=== PATIENT | female | born 1995 | race Caucasian/White ===

== ENCOUNTER 2025-01-27 12:14 | Emergency (ER) | payer OTHER, SELFPAY ==
[2025-01-27 12:18] VITALS: BP 131/69; PULSE 104; RESP 20; TEMP 36.8; O2SAT 97; BMI 23.4
--- NOTE | 2025-01-27 12:19 | ED_ITS ---
HPI - General Adult General Chief complaint: Allergic Reaction Stated complaint: Allergic reaction, used epi pen Time Seen by Provider: 01/27/25 12:35 Source: patient Mode of arrival: ambulatory Limitations: no limitations History of Present Illness ED Provider: DR. 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 Patient's symptoms was around 12:00. Related Data Previous Rx's ?Medication ?Instructions ?Recorded epinephrine 0.3 mg/0.3 mL 0.3 mg (0.3 mL) IM Q10M PRN 01/27/25 injection, auto-injector (EpiPen hypersensitivity reac tion #2 ea 2-Lux) Allergies Allergy/AdvReac Type Severity Reaction Status Date / Time dexamethasone Allergy Hives Verified 01/27/25 13:07 environmental allergies Allergy Hives Verified 01/27/25 12:22 famotidine (From Pepcid) Allergy Hives Verified 01/27/25 13:07 seafood Allergy Hives Verified 01/27/25 12:22 Review of Systems Review of Systems: All other systems are reviewed and are negative Constitutional: Reports as per HPI and Reports no additional constitutional complaints Eyes: Reports as per HPI and Reports no additional eye complaints Reports system reviewed and no additional complaints, except as documented Cardiovascular: Reports as per HPI and Reports no additional cardiovascular complaints Respiratory: Reports as per HPI and Reports no additional respiratory complaints Gastrointestinal: Reports as per HPI and Reports no additional gastrointestinal complaints Genitourinary: Reports no additional female genitourinary complaints Musculoskeletal: Reports no additional musculoskeletal complaints Skin/Breast: Reports system reviewed and no additional complaints, except as docu Psychiatric: Reports no additional psychiatric complaints Endocrine: Reports no additional endocrine complaints Hematologic/Lymphatic: Reports no additional hematologic/lymphatic complaints Allergic/Immunologic: Reports no additional allergic/immunologic complaints Reports system reviewed and no additional complaints, except as documented and Reports Abnormal speech present PMFSH Social History Social History Smoked in Last 30 Days: No Use of substances other than those prescribed or required for medical reasons: No Advance Directives: No Advance Directives Information Provided: Yes Physical Exam ED Vital Signs: Vital Signs - 24 hr 01/27/25 12:18 01/27/25 12:48 01/27/25 14:44 Temperature 98.3 F 98.1 F 98.2 F Pulse Rate 104 H 101 H 103 H Respiratory Rate 20 19 18 Blood Pressure 131/69 103/68 101/54 L Pulse Oximetry 97 100 100 Oxygen Delivery Method Room Air Room Air Room Air BMI result Body Mass Index 23.4 Vital signs have been reviewed and appear to be correct. Blood pressure elevated. Heart rate elevated, Respiratory rate normal. Temperature normal. Oxygen saturation normal. Appearance: Anxious, Alert. Oriented X3. No acute distress. Head: Normal external exam. Normocephalic. Atraumatic. No Sue signs noted. No raccoon eyes noted Eyes: PERRLA. EOMI. Conjunctiva and sclera normal. Eyelids normal. ENT: TM's Normal. Pharynx normal. Uvula midline. Moist mucous membranes. No trismus noted. No drooling noted. No muffled voice noted. Neck: Normal inspection. Neck supple. FROM. No adenopathy. Thyroid Normal. No meningeal signs. No neck mass noted. CVS: Normal heart rate and rhythm. Heart sound normal. No murmurs noted. Pulses normal throughout. Respiratory: No respiratory distress. Painless inspiration. Breath sounds normal. No wheezes/rales/rhonchi noted. Chest nontender. No accessory muscle usage noted or decreased air movement noted. Abdomen: Soft and nontender. Bowel sounds normal in all 4 quadrants. No distention noted. No organomegaly noted. No visible injury noted. Back: No CVA tenderness. Full range of motion noted. Skin: Skin warm and dry. Normal skin color. Normal skin turgor. No rashes/lesions/lacerations noted. Extremities: No lower extremity edema. Extremities exhibit normal range of motion. Extremities nontender. Neuro: Oriented X 3. Cranial nerve exam: II-XII are grossly intact No motor deficit. No sensory deficit. Reflexes normal. Course Course Course Narrative: 29yo F history of MCAS, multiple allergies. Eating campos. Feeling of throat closing up. Given Epinephrine prior to arrival. No stridor, Not in respiratory distress Rapid medical screening exam was performed. Patient stable at time of evaluation. Jenny Fermin, DO 01/27/25 1219 Reevaluation(s) Reevaluation #1: 29-year-old female history of mast cell activation had to use an epi pen after developed symptoms of allergic reaction. Patient hemodynamically stable, no sign of allergic reaction, patent airway, no stridor. Time: 15:00 Medications Administered Discontinued Medications Generic Name Dose Route Start Last Admin Trade Name Freq PRN Reason Stop Dose Admin Diphenhydramine HCl 25 mg 01/27/25 12:50 01/27/25 13:08 Diphenhydramine Hcl 50 Mg/Ml Vial IVPUSH 01/27/25 12:51 25 mg ONCE ONE Administration Famotidine 20 mg 01/27/25 12:50 01/27/25 13:07 Famotidine/Pf 20 Mg/2 Ml Vial IVPUSH 01/27/25 12:51 Not Given ONCE ONE Lactated Ringer's 1,000 mls @ 999 mls/hr 01/27/25 13:00 01/27/25 14:19 Lr IV 01/27/25 14:00 Infused .Q1H1M FERNANDO Infusion Prednisone 60 mg 01/27/25 13:12 01/27/25 13:21 Prednisone 20 Mg Tablet PO 01/27/25 13:13 60 mg ONCE ONE Administration Medical Decision Making Differential Diagnosis Differential Diagnoses: The differential diagnosis associated with the presentation includes (Anaphylaxis, allergic reaction.) Admission/Observation Consideration of admission/observation: Escalation of care including admission/observation considered Critical Care Time Critical Care Time Critical Care Time: Yes Total Critical Care Time: 60 Attestation: The patient was critically ill with a high probability of imminent or life- threatening deterioration. I spent greater than 30 minutes of discontinuous time evaluating the patient, delivering critical care at the bedside, discussing evaluating data with consultants. Critical care time does not include time spent performing separately billable procedures or teaching. Time spent performing critical care was 60 minutes. Discharge Plan Discharge Clinical Impression: Allergic reaction Patient Disposition: Home, Self-Care Instructions: General Allergic Reaction (ED) Prescriptions: New epinephrine [EpiPen 2-Lux] 0.3 mg/0.3 mL auto-injector 0.3 mg IM Q10M PRN (Reason: hypersensitivity reaction) Qty: 2 0RF Rx Instructions: for 2 doses Referrals: [facility] [Primary Care Provider, Primary Care] Print Language: Tuvaluan
[2025-01-27 12:48] VITALS: BP 103/68; PULSE 101; RESP 19; TEMP 36.7; O2SAT 100
[2025-01-27] MEDS: Lactated Ringers 1,000 ML 999 ML IV (13:15)
--- NOTE | 2025-01-27 13:35 | PC.NURSE ---
patient a&ox3, vss, iv inserted, pt medicated per order, rr equal/non labored, denies difficulty swallowing, quality assurance monitor final applied- nsr on monitor, call jorge within reach, plan of care ongoing
[2025-01-27 14:44] VITALS: BP 101/54; PULSE 103; RESP 18; TEMP 36.8; O2SAT 100
[2025-01-27 15:25] VITALS: BP 101/54; PULSE 103; RESP 18; TEMP 36.8; O2SAT 100
--- OUTSIDE RECORDS SUMMARY | 2025-01-27 16:37 | XMS_ITS | Encounter Summary ---
Author Organization [facility] Address [address] [place] [address] Care Team Providers Care Blind Aide Name Role Phone Lauryn Muir DO Primary Care Provider Unavail able Encounter Details Date Type Department Care Team (Late st Contact Info) Description 05/25/2024 Scanned Document [address] [place] [phone] Provider, Generic Social History Tobacco Use Types Packs/Day Years Used Date Smoking Tobacco: Never Assessed Comments Unknown Sex and Gender Information Value Date Recorded Sex Assigned at Not on file Legal Sex Female 12:06 PM EST Gender Identity Not on file Sexual Orientation Not on file documented as of this encounter Plan of Treatment Not on file documented as of this encounter Visit Diagnoses Not on filedocumented in this encounter Care Teams Blind Aide Relationship Specialty Start Date End Date Lauryn Muir DO PCP - General Internal Medicine 05/25/24 documented as of this encounter
--- OUTSIDE RECORDS SUMMARY | 2025-01-27 16:37 | XMS_ITS | Encounter Summary ---
Author Organization [facility] Address [address] [place] [address] Care Team Providers Care Crushing Machine Operator Name Role Phone Lauryn Muir DO Primary Care Provider Unavail able Encounter Details Date Type Department Care Team (Late st Contact Info) Description 05/25/2024 Scanned Document [address] [place] [phone] Provider, Generic Social History Tobacco Use [...] on filedocumented in this encounter Care Teams Crushing Machine Operator Relationship Specialty Start Date End Date Lauryn Muir DO PCP - General Internal Medicine 05/25/24 documented as of this encounter
--- OUTSIDE RECORDS SUMMARY | 2025-01-27 16:37 | XMS_ITS | Data Portability ---
Author Organization [facility] Address [address] [address] Assessment Encounter Date Assessment Date Assessment LastModified by Organization Details LastModified Time 06/12/2024 06/12/2024 28 year old female with chronic nasal congestion. No polyps on nasal endoscopy. She did have mucoid secretions on the right. I have recommended a course of Doxycycline. I have also recommended that she use Flonase daily as well as Astelin which I have prescribed today. Allergy testing results are pending. Sleep study has not yet been scheduled. I will see her back in six weeks. If her symptoms persist she may benefit from CT sinus. [email or web address] Not available 06/12/2024 10:22:03 Plan of Treatment Reminders Order Date Submit Date Provider Last Modified By Organization Details Last Modified Time Details Appointments None recorded. Lab None recorded. Referral None recorded. Procedures None recorded. Surgeries None recorded. Imaging None recorded. Medication Orders azelastine 137 mcg (0.1 %) nasal spray 2024 025 [address]IER [id number], [address] [place], [address], 09:53:40 doxycycline hyclate 100 mg tablet 2024 025 [email or web address] [id number], [address] [place], [address], 10:15:10 Patient TargetsNo targets recorded. Patient InstructionsNo instructions recorded. Reason for Referral None Reported. Problems Name Problem SNOMED Code Status Onset Date Resolution Date Notes Provider Name and Address Organization Details Recorded Time Nasal congestion 08761288 Active 025 Bethanie gipson [facility] 5 09:43:46 Snoring 30878584 Active 025 Bethanie gipson [facility] 5 09:44:01 Acute sinusitis 06459659 Active 025 Bethanie gipson [facility] 5 09:51:45 Problem Notes None recorded. Procedures Surgical History Date Name Laterality Status Provider Name and Address Organization Details Recorded Time 06/12/2024 NasalEndos copy_DP completed Bethanie Martinez [facility] 06/12/2024 10:17:55 Imaging Results None recorded. Procedure Notes None recorded. Medical Equipment None Reported. Medications Name Sig Start Date Stop Date Status Note LastModified by Organization Details LastModified Time promethazine -DM 6.25 mg-15 mg/5 mL oral syrup TAKE 5 ML BY MOUTH 4 TIMES A DAY EVERY 6 HOURS NEEDED FOR COUGH active Not Available Not Available No t Available prednisone 10 mg tablet PLEASE SEE ATTACHED FOR DETAILED DIRECTIONS active Not Available Not Available N ot Available albuterol sulfate 2.5 mg/3 mL (0.083 %) solution for nebulization INHALE 3 ML BY NEBULIZATIO N EVERY 6 HOURS IF NEEDED FOR WHEEZING active Not Available Not Available No t Available cetirizine 10 mg tablet TAKE 1 TABLET BY MOUTH DAILY NEEDED FOR ALLERGY SYMPTOMS active Not Available Not Available No t Available albuterol sulfate 1.25 mg/3 mL solution for nebulization TAKE 1 VIAL VIE NEBULIZER EVERY 4 HOURS (SHORTNESS OF BREATH OR WHEEZING) FOR 5 DAYS active Not Available Not Available N ot Available prednisone 20 mg tablet TAKE 3 TABLETS BY MOUTH EVERY DAY FOR 5 DAYS active Not Available Not Available No t Available tramadol 50 mg tablet TAKE 1 TABLET BY MOUTH EVERY 6 HOURS IF NEEDED-MODE RATE PAIN UP TO 5 DAYS. MAX DAILY AMOUNT:200 MG active Not Available Not Available No t Available acetaminophe n 500 mg tablet TAKE 2 TABLETS BY MOUTH EVERY 8 HOURS IF NEEDED FOR MILD PAIN FOR UP TO 10 DAYS. active Not Available Not Available No t Available oseltamivir 75 mg capsule TAKE 1 CAPSULE BY MOUTH TWICE A DAY active Not Available Not Available No t Available buspirone 7.5 mg tablet TAKE 1 TABLET BY MOUTH 2 TIMES A DAY. active Not Available Not Available No t Available azelastine 137 mcg (0.1 %) nasal spray SPRAY 2 SPRAYS BY INTRANASAL ROUTE TWICE A DAY FOR 30 DAYS active Not Available Not Available No t Available epinephrine 0.3 mg/0.3 mL injection, auto-injecto r active Not Available Not Available Not Available ibuprofen 600 mg tablet TAKE 1 TABLET BY MOUTH 3 TIMES A DAY FOR 14 DAYS. active Not Available Not Available No t Available albuterol sulfate HFA 90 mcg/actuatio n aerosol inhaler INHALE 1-2 PUFFS 4 TIMES DAILY (EVERY 6 HOURS) NEEDED FOR WHEEZING. active Not Available Not Available No t Available hydroxyzine HCl 10 mg tablet TAKE 2 TABLETS BY MOUTH 4 TIMES A DAY NEEDED FOR ITCHING active Not Available Not Available Not Available doxycycline hyclate 100 mg tablet TAKE 1 TABLET BY MOUTH TWICE A DAY FOR 20 DAYS active Not Available Not Available No t Available Advair HFA 115 mcg-21 mcg/actuatio n aerosol inhaler PLEASE SEE ATTACHED FOR DETAILED DIRECTIONS active Not Available Not Available N ot Available Vitals Date Recorded Body weight Body mass index (BMI) Body height Provider Name and Address Organization Details Last Updated DateTime 06/12/2024 18271.45 g 20.6 kg/m2 165.1 cm Jasmin Le [place] [facility] 06/12/2024 09:33:10 Social History None recorded. Functional Status None recorded. Mental Status None recorded. Family History Nothing Reported. Medical History No medical history recorded. Gynecological HistoryNo gynecological history recorded. Obstetrics History GPAL:G 0 P 0 0 0 0 Past Encounters Encounter ID Performer Location Encounter Start Date Encounter Closed Date Diagnosis/Indication Diagnosis SNOMED-CT Code Diagnosis ICD10 Code Diagnosis IMO Codes Diagnosis Note [id number] BETHANIE MARTINEZ PA-C [facility] [address] [phone] 06/12/2024 09:26:32 06/12/2024 10:01:51 Nasal congestion 89286185 R09.81 Snoring 31406289 R06.83 Acute sinusitis 43410850 J01.90 Health Concerns Section Related Observation LastModified by Organization Detai isidro LastModified Time None Recorded Concern Status LastModified by Organization Details LastModified Time None Recorded Advance Directives Directive None Recorded Payers Insurance Date Sequence Insurance Name Policy Number Policy Jolly Covered Member ID Jolly Member ID Guarantor Name 07/20/2024 1 MERI [id number] Carole Martino [id number] Carole Martino Notes Date Note Type Note Provider Name and Address Organization Details Recorded Time 06/12/2024 text/html ROS as noted in the HPI 28 year old female presents for evaluation of chronic nasal congestion. She reports she has always been a mouth breather and drooled a lot as a child. She has never been able to fully breathe through her nose. Most days she wakes up completely congested. Throughout the day it improves a bit. She has constant thick postnasal drip and runny nose. 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 She has asthma. Her solid waste facility supervisor recommended two week trial of Flonase and she reports only temporary improvement for a couple of hours with Flonase. She is on Zyrtec. She had allergy testing yesterday through [facility] in [place]. Results are not finalized yet but she was told that she had some food and environmental allergies. She just completed 10-14 days of Prednisone for her asthma and did not notice improvement in her congestion. Her solid waste facility supervisor has also ordered a sleep study which is not yet scheduled as she has been told that she snores and is frequently tired throughout the day. DOMENIC DIETRICH MD [address] [place] [address], [phone], [facility] - [facility] 06/12/2024 16:49:55 OBGyn Episode No OBEpisode recorded.
--- OUTSIDE RECORDS SUMMARY | 2025-01-27 16:37 | XMS_ITS ---
Author Name [facility] Organization Unknown History of Medication Use Medication Directions Dispensed Refills Start Date End Date Stat us albuterol (PROVENTIL HFA; VENTOLIN HFA) 108 (90 Base) MCG/ACT inhaler Inhale 1-2 puffs 4 times daily (every 6 hours) as needed for wheezing. 05/25/2024 active oseltamivir (TAMIFLU) 75 MG capsule Take 1 capsule (75 mg total) by mouth 2 (two) times a day. 05/25/2024 active predniSONE (DELTASONE) 10 MG tablet Take 5 tabs/days1-3, 4 tabs/days4-6, 3tabs/days7-9, 2tab/edmm65-76, and 1 tab/emkk13-75; take with food. 05/25/2024 active proMETHAZINE-dextrome thorphan (proMETHAZINE-DM) 6.25-15 MG/5ML syrup Take 5 mL by mouth 4 times daily (every 6 hours) as needed for cough. 05/25/2024 active Advair HFA 115-21 MCG/ACT inhaler Please see attached for detailed directions 02/19/2024 active Allergies Allergen Reaction Severity Comment Documented Date Source Statu s DEXAMETHASONE HIVES 05/25/2024 [facility] active Problems Problem Status Onset Date Problem Type Date of Resoluti on Source Acute cough active EncounterDiagnosisAct [facility] Exposure to influenza active EncounterDiagnosisAct [facility] Viral bronchitis active EncounterDiagnosisAct [facility] Encounters Encounter Type Encounter Reason Primary Diagnosis Location Date Ambulatory Cough Cough [facility] 05/25/2024 Care Team Organization Name Specialty Phone Email Start Date End Da te [facility] 06/10/2024 07/02/2024 [facility] 05/26/2024 [facility] 05/26/2024 [facility] Nasreen Mck[facility] 02/06/2022 11/18/2023
--- OUTSIDE RECORDS SUMMARY | 2025-01-27 16:37 | XMS_ITS | Clinical Summary ---
Author Organization [address] [facility] Address [address] [place] [address] Phone Care Team Providers Care Relief Master Name Role Phone Lauryn Muir Primary Care Provider [phone] Allergies Active Allergy Reactions Criticality Noted Date Comments Dexamethasone Hives 01/21/2024 Latex Hives,Rash 10/20/2018 Medications albuterol 2.5 mg /3 mL (0.083 %) nebulizer solutionIndicati ons:Mild intermittent asthma without complication Take 3 mL (2.5 mg total) by nebulization every 6 (six) hours if needed for wheezing. 300 mL 1 4 Active predniSONE (DELTASONE) 10 mg tablet Take 2 tablets (20 mg total) by mouth 2 (two) times a day. Take 5 tabs 5 Active fluticasone propionate (FLONASE) 50 mcg/actuation nasal sprayIndications :Nasal congestion Administer 2 sprays into each nostril 1 (one) time each day for 14 days. Shake gently. Before first use, prime pump. After use, clean tip and replace cap. 48 g 1 5 Active escitalopram (Lexapro) 20 mg tablet Take 1 tablet (20 mg total) by mouth 1 (one) time each day. 90 each 5 Active fluticasone propion-salmeter oL (ADVAIR HFA) 115-21 mcg/actuation inhaler Inhale 2 puffs by mouth 2 (two) times a day. Rinse mouth with water after use to reduce aftertaste and incidence of candidiasis. Do not swallow. Active albuterol HFA (PROAIR HFA ; PROVENTIL HFA ; VENTOLIN HFA) 90 mcg/actuation inhaler Inhale 2 puffs by mouth every 4 (four) hours if needed for wheezing. 6.7 g 5 Active hydrOXYzine HCL (ATARAX) 50 mg tabletIndication s:anxiety Take 1 tablet (50 mg total) by mouth 3 (three) times a day. 180 tablet 1 5 Active busPIRone (BUSPAR) 7.5 mg tabletIndication s:Anxiety TAKE 1 TABLET BY MOUTH 2 TIMES A DAY. 180 tablet 1 5 Active diclofenac (VOLTAREN) 1 % topical gel Apply 4 g topically 4 (four) times a day. DISP: 1 tube with 1 refill 1 each 1 5 Active Active Problems Problem Noted Date Diagnosed Date Anxiety and depression 07/30/2024 Intercostal pain 07/30/2024 Mass of lower inner quadrant of left breast 12/0 05/2023 Mild intermittent asthma without complication Resolved Problems Problem Noted Date Diagnosed Date Resolved Date Rh negative state in antepartum period 01/24/2024 07/30/2024 Positive GBS test 06/15/2021 07/30/2024 Overview (01/24/2024): Pos GBS at [facility] on 05/28/2021 Encounters Date Type Department Care Team Description 01/16/2025 7:30 PM EDT - 01/16/2025 11:35 PM EDT Emergency [facility] Emergency [address] [place] [address] Navin Russell MD Vasovagal syncope (Primary Dx) Discharge Disposition: Home or Self Care 12/22/2024 9:15 AM EDT Office Visit General Surgery - [place] [facility] [address] [place] [address] Dunia Lagos MD Mass overlapping multiple quadrants of left breast (Primary Dx) 12/01/2024 Telephone Pulmonology [address] [place] [address] Apple Khan NP from Last 3 Months Surgical History Surgery Date Site/Laterality Comments OTHER SURGICAL HISTORY Right PROCEDURE: HISTORICAL ARM SURGERY WISDOM TOOTH EXTRACTION INCISION AND DRAINAGE INTRA ORAL ABSCESS 05/02/2023 - 05/30/2023 Medical History Medical History Date Comments Mild intermittent asthma, uncomplicated DX:Mild intermittent asthma, uncomplicated History of transfusion Fractures Anemia Family History Relation Name Status Comments Father Alive Maternal Grandfather Alive Maternal Grandmother Alive Mother Alive Paternal Grandfather Alive Paternal Grandmother Alive Social History Tobacco Use Types Packs/Day Years Used Date Smoking Tobacco: Never Smokeless Tobacco: Never Tobacco Cessation:Counseling Given: Not Answered Alcohol Use Standard Drinks/Week Comments Yes 0 (1 standard drink = 0.6 oz pur e alcohol) OCCASIONAL Interpersonal Safety Answer Date Record ed Physical Abuse Unrecognized value 03/31/2024 Verbal Abuse Unrecognized value 03/31/2024 Comments No Sex and Gender Information Value Date Recorded Sex Assigned at Female 03/18/2024 11:47 AM EST Legal Sex Female 10:45 AM EST Gender Identity Female 03/18/2024 11:47 AM EST Sexual Orientation Straight 03/31/2024 6: 01 AM EST Obstetrics History Last Filed Vital Signs Vital Sign Reading Time Taken Comments Blood Pressure 118/92 01/16/2025 10:42 PM EDT Pulse 81 01/16/2025 10:42 PM EDT Temperature 37.1 C (98.7 F) 01/16/2025 7:58 PM EDT Respiratory Rate 17 01/16/2025 7:58 PM EDT Oxygen Saturation 98% 01/16/2025 7:58 PM EDT Inhaled Oxygen Concentration - - Weight 64.7 kg (142 lb 9.6 oz) 12/22/2024 9:16 A M EDT Height 165.1 cm (5' 5 ) 12/22/2024 9:16 AM EDT Body Mass Index 23.73 12/22/2024 9:16 AM EDT Plan of Treatment Health Maintenance Due Date Last Done Comments Hepatitis A Vaccines (2 of 2 - 2-dose series) 05/04/2012 11/02/2011 Pneumococcal Vaccine: Pediatrics (0 to 5 Years) and At-Risk Patients (6 to 49 Years) (1 of 2 - PCV) 2016 Cervical Cancer Screening: Pap Smear 2018 HIV Screening 03/05/2022 Hepatitis C Screening 03/05/2022 Social Influencers of Health Screening 03/05/2022 Depression Screening 04/01/2024 COVID-19 Vaccine ( - season) 2024 Influenza Vaccine (#1) 2024 DTaP,Tdap,and Td Vaccines (9 - Td or Tdap) 05/27/2029 05/27/2019, 11/13/2010, 11/13/2010, Additional history exists RSV Immunization Adult Patients (1 - 1-dose 75+ series) 2072 Hepatitis B Vaccines Completed 04/14/1998, 1997, 1997 MMR Vaccines Completed 01/23/1999, 10/06/1998 HIB Vaccines Completed 10/31/2001, 05/02, 04/14/1998, Additional history exists IPV Vaccines Completed 10/31/2001, 05/02, 04/14/1998, Additional history exists Meningococcal ACWY Vaccine Aged Out 11/02/2011 N o longer eligible based on patient's age to complete this topic Varicella Vaccines Completed 11/02/2011, 10/06/1998 HPV Vaccines Completed 05/26/2013, 05/2011, 11/13/2010 Meningococcal B Vaccine Aged Out No l onger eligible based on patient's age to complete this topic RSV Immunization Patients Under 20 months Aged Out No longer eligible based on patient's age to complete this topic Medical Devices Implanted Type Area Voltmeter Operator Device Identifier Shelf Expiration Date Model / Serial / Lot Marker 18ga Magseed 7cm - [id number] - [id number] Implanted:Qty: 2 on 03/23/2024 by Stuart Baker MD at [facility] Imaging Implants Left: Breast [employer] [id number] 09/28/2025 [id number] / [id number] Procedures Procedure Name Priority Date/Time Associated Diagnosis Comments CT CERVICAL SPINE WO CONTRAST STAT 01/16/2025 10:[address] HEAD WO CONTRAST STAT 01/16/2025 1 0:10 PM EDT HCG, SERUM, QUALITATIVE STAT Add-on 01/16/2025 8:21 PM EDT CBC WITH AUTO DIFFERENTIAL STAT 01/16/2025 8:21 PM EDT TROPONIN I HIGH SENSITIVITY STAT 01/16/2025 8:21 PM EDT MAGNESIUM STAT 01/16/2025 8:21 PM EDT BASIC METABOLIC PANEL STAT 01/16/2025 8:21 PM EDT CBC AND DIFFERENTIAL STAT 01/16/2025 8:21 PM EDT from Last 3 Months Results * CT Cervical Spine wo Contrast (01/16/2025 10:10 PM EDT) Anatomical Region Laterality Modality Spine, C-spine Computed Tomogra phy 01/16/2025 11:0 5 PM EDT Impressions 01/16/2025 11:05 PM EDT No acute findings. This document has been electronically signed by: Hemanth Allen MD on 01/16/2025 23:05:58 Narrative 01/16/2025 11:05 PM EDT INDICATION: fall CT cervical spine without contrast Comparison: None provided Findings: Disc height loss and anterior osteophyte formation present at C6-7 which results in mild focal lordosis at this level. No canal stenosis or foraminal narrowing at this level. No significant degenerative change of other levels. No acute fractures or dislocations. No acute findings on limited view of the intracranial contents. No cervical fluid collections or masses. Lung apices are clear. Procedure Note Hemanth Allen MD - 01/16/2025 INDICATION: fall CT cervical spine without contrast Comparison: None provided Findings: Disc height loss and anterior osteophyte formation present at C6-7 which results in mild focal lordosis at this level. No canal stenosis or foraminal narrowing at this level. No significant degenerative change of other levels. No acute fractures or dislocations. No acute findings on limited view of the intracranial contents. No cervical fluid collections or masses. Lung apices are clear. IMPRESSION: No acute findings. This document has been electronically signed by: Hemanth Allen MD on 01/16/2025 23:05:58 Navin Russell MD IMG CT PROCEDURES Final R esult * CT Head wo Contrast (01/16/2025 10:10 PM EDT) Anatomical Region Laterality Modality Head and Neck Computed Tomogra phy 01/16/2025 11:0 5 PM EDT Impressions 01/16/2025 11:05 PM EDT 1. No acute intracranial findings. 2. Pansinus disease. Bubbly debris in the right maxillary and right sphenoid sinuses suggest acute sinusitis. This document has been electronically signed by: Hemanth Allen MD on 01/16/2025 23:05:38 Narrative 01/16/2025 11:05 PM EDT INDICATION: fall CT head without contrast Comparison: None provided Findings: No intra-axial mass, midline shift, hydrocephalus, or acute hemorrhage. No significant atrophy-like change or white matter disease. Mucosal thickening of the ethmoid and maxillary sinuses with bubbly debris in the right maxillary and right sphenoid sinuses. Mastoid air cells are clear. The orbits are within normal limits. There is no acute fracture. Procedure Note Hemanth Allen MD - 01/16/2025 INDICATION: fall CT head without contrast Comparison: None provided Findings: No intra-axial mass, midline shift, hydrocephalus, or acute hemorrhage. No significant atrophy-like change or white matter disease. Mucosal thickening of the ethmoid and maxillary sinuses with bubblydebris in the right maxillary and right sphenoid sinuses. Mastoid air cells are clear. The orbits are within normal limits. There is no acute fracture. IMPRESSION: 1. No acute intracranial findings. 2. Pansinus disease. Bubbly debris in the right maxillary and right sphenoid sinuses suggest acute sinusitis. This document has been electronically signed by: Hemanth Allen MD on 01/16/2025 23:05:38 Navin Russell MD IMG CT PROCEDURES Final R esult * Troponin I high sensitivity (01/16/2025 8:21 PM EDT) [facility] High Sensitivity Troponin I 3 <=54 ng/L LAB CHEMISTRY METHOD 01/16/2025 9:35 PM EDT [facility] Blood Venous blood specimen / Unknown Venipuncture / Unknown 01/16/2025 8:21 PM EDT 01/16/2025 8:[address] [facility] - 01/16/2025 9:35 PM EDT High levels of biotin in samples may falsely decrease hsTroponin values. Use caution when interpreting hsTroponin results in patients taking biotin who exhibit renal impairment (eGFR <60) or in patients taking more than 20 mg/day of biotin. Navin Russell MD LAB BLOOD ORDERABLES Suki l Result [facility] [address] [place] [address], [place] [phone] * (ABNORMAL) CBC auto differential (01/16/2025 8:21 PM EDT) [facility] WBC 9.2 4.8 - 10.8 K/mcL LAB HEMETOLOGY METHOD 01/16/2025 9:08 PM EDT [facility] RBC 4.40 3.80 - 4.80 M/mcL LAB HEMETOLOGY METHOD 01/16/2025 9:08 PM EDT [facility] Hemoglobin 12.9 11.5 - 16.0 g/dL LAB HEMETOLOGY METHOD 01/16/2025 9:08 PM EDT [facility] Hematocrit 38.9 35.0 - 47.0 % LAB HEMETOLOGY METHOD 01/16/2025 9:08 PM EDT [facility] MCV 87.6 79.0 - 98.0 FL LAB HEMETOLOGY METHOD 01/16/2025 9:08 PM EDT [facility] MCH 29.1 27.0 - 32.0 pcg LAB HEMETOLOGY METHOD 01/16/2025 9:08 PM [facility] MCHC 33.2 32.0 - 37.0 g/dL LAB HEMETOLOGY METHOD 01/16/2025 9:08 PM [facility] RDW 12.5 11.0 - 15.0 % LAB HEMETOLOGY METHOD 01/16/2025 9:08 PM [facility] Platelets 305 130 - 400 K/mcL LAB HEMETOLOGY METHOD 01/16/2025 9:08 PM [facility] MPV 10.0 7.0 - 11.0 FL LAB HEMETOLOGY METHOD 01/16/2025 9:08 PM [facility] NRBC 0.0 <1.0 % LAB HEMETOLOGY METHOD 01/16/2025 9:08 PM [facility] NRBC Absolute 0.00 <0.10 K/mcL LAB HEMETOLOGY METHOD 01/16/2025 9:08 PM [facility] Neutrophils Relative 65.7 % LAB HEMETOLOGY METHOD 01/16/2025 9:08 PM [facility] Lymphocytes Relative 24.5 % LAB HEMETOLOGY METHOD 01/16/2025 9:08 PM [facility] Monocytes Relative 6.7 % LAB HEMETOLOGY METHOD 01/16/2025 9:08 PM [facility] Eosinophils Relative 2.5 % LAB HEMETOLOGY METHOD 01/16/2025 9:08 PM [facility] Basophils Relative 0.2 % LAB HEMETOLOGY METHOD 01/16/2025 9:08 PM [facility] Immature Granulocytes Relative 0.4 % LAB HEMETOLOGY METHOD 01/16/2025 9:08 PM EDT [facility] Neutrophils Absolute 6.04 1.50 - 7.00 K/mcL LAB HEMETOLOGY METHOD 01/16/2025 9:08 PM EDT [facility] Lymphocytes Absolute 2.25 1.00 - 5.00 K/mcL LAB HEMETOLOGY METHOD 01/16/2025 9:08 PM EDT [facility] Monocytes Absolute 0.62 0.20 - 1.00 K/mcL LAB HEMETOLOGY METHOD 01/16/2025 9:08 PM EDT [facility] Eosinophils Absolute 0.23 0.00 - 0.50 K/mcL LAB HEMETOLOGY METHOD 01/16/2025 9:08 PM EDT [facility] Basophils Absolute 0.02 0.00 - 0.20 K/mcL LAB HEMETOLOGY METHOD 01/16/2025 9:08 PM EDT [facility] Immature Granulocytes Absolute 0.04(H) 0.00 - 0.03 K/mcL LAB HEMETOLOGY METHOD 01/16/2025 9:08 PM EDT [facility] Blood Venous blood specimen / Unknown Venipuncture / Unknown 01/16/2025 8:21 PM EDT 01/16/2025 8:44 PM EDT us Navin Russell MD LAB BLOOD ORDERABLES Suki l Result [facility] [address] [place] [address], * hCG, serum, qualitative (01/16/2025 8:21 PM EDT) Pathologist [facility] hCG Qual Negative Negative 01/16/2025 9:57 PM EDT [facility] Blood Venous blood specimen / Unknown Venipuncture / Unknown 01/16/2025 8:21 PM EDT 01/16/2025 8:44 PM EDT Navin Russell MD LAB BLOOD ORDERABLES Suki l Result [facility] [address] [place] [address], [place] [phone] * Magnesium (01/16/2025 8:21 PM EDT) [facility] Magnesium 2.1 1.9 - 2.6 mg/dL LAB CHEMISTRY METHOD 01/16/2025 9:32 PM EDT [facility] Blood Venous blood specimen / Unknown Venipuncture / Unknown 01/16/2025 8:21 PM EDT 01/16/2025 8:44 PM EDT Navin Russell MD LAB BLOOD ORDERABLES Suki l Result Performing Organization Address City/[facility]/ZIP Co de Phone Number [facility] [address] [place] [address], [place] [phone] * Basic metabolic panel (01/16/2025 8:21 PM EDT) [facility] Sodium 140 133 - 145 mmol/L LAB CHEMISTRY METHOD 01/16/2025 9:32 PM EDT [facility] Potassium 3.7 3.5 - 5.5 mmol/L LAB CHEMISTRY METHOD 01/16/2025 9:32 PM EDT [facility] Chloride 107 96 - 110 mmol/L LAB CHEMISTRY METHOD 01/16/2025 9:32 PM EDT [facility] CO2 25 21 - 32 mmol/L LAB CHEMISTRY METHOD 01/16/2025 9:32 PM EDT [facility] Anion Gap 8 3 - 11 LAB CHEMISTRY METHOD 01/16/2025 9:32 PM EDT [facility] Glucose 89 70 - 100 mg/dL LAB CHEMISTRY METHOD 01/16/2025 9:32 PM EDT [facility] BUN 10 5 - 25 mg/dL LAB CHEMISTRY METHOD 01/16/2025 9:32 PM EDT [facility] Creatinine 0.56 0.50 - 1.10 mg/dL LAB CHEMISTRY METHOD 01/16/2025 9:32 PM EDT [facility] eGFR 128 >=60 mL/min/1. 73m2 LAB CHEMISTRY METHOD 01/16/2025 9:32 PM EDT [facility] Comment:Calculation based on the Chronic Kidney Disease Epidemiology Collaboration (CKD-EPI) equation refit without adjustment for race. BUN/Creatinine Ratio 17.9 LAB CHEMISTRY METHOD 01/16/2025 9:32 PM EDT [facility] Calcium 9.4 8.5 - 10.5 mg/dL LAB CHEMISTRY METHOD 01/16/2025 9:32 PM EDT [facility] Blood Venous blood specimen / Unknown Venipuncture / Unknown 01/16/2025 8:21 PM EDT 01/16/2025 8:44 PM EDT Navin Russell MD LAB BLOOD ORDERABLES Suki reese Result [facility] [address] [place] [address], [place] [phone] from Last 3 Months Insurance [employer] MEDICAID - [place] Advance Directives * Full Code - Default (Latest Code Status on File) Date Activated Date Inactivated Comments 03/31/2024 6:06 AM 03/31/2024 12:22 PM This is o rder is used when code status has not been discussed with the patient, or code status is otherwise unknown/unconfirmed To update the patient's code status, place a code status order. Do not modify or discontinue any currently active code status orders. Care Teams Relief Master Relationship Specialty Start Date End Date Lauryn Muir DO [facility] [place] [address] PCP - General 01/16/24
--- OUTSIDE RECORDS SUMMARY | 2025-01-27 16:37 | XMS_ITS | Clinical Summary ---
Author Organization [facility] Address [address] [place] [address] Care Team Providers Care Automobile And Property Underwriter Name Role Phone Lauryn Muir DO Primary Care Provider Unavail able Allergies Active Allergy Reactions Criticality Noted Date Comments Dexamethasone Hives Medium 05/25/2024 Medications Advair HFA 115-21 MCG/ACT inhaler Please see attached for detailed directions 4 Active predniSONE (DELTASONE) 10 MG tabletIndicatio ns:Viral bronchitis Take 5 tabs/days1-3, 4 tabs/days4-6, 3tabs/days7-9, 2tab/zehd10-97, and 1 tab/wnie67-85; take with food. 45 tablet 5 Active proMETHAZINE-de xtromethorphan (proMETHAZINE-D M) 6.25-15 MG/5ML syrupIndication s:Acute cough Take 5 mL by mouth 4 times daily (every 6 hours) as needed for cough. 120 mL 5 Active albuterol (PROVENTIL HFA; VENTOLIN HFA) 108 (90 Base) MCG/ACT inhalerIndicati ons:Viral bronchitis Inhale 1-2 puffs 4 times daily (every 6 hours) as needed for wheezing. 1 each 5 Active Active Problems No known active problems Social History Tobacco Use Types Packs/Day Years Used Date Smoking Tobacco: Never Assessed Comments Unknown Sex and Gender Information Value Date Recorded Sex Assigned at Not on file Legal Sex Female 12:06 PM EST Gender Identity Not on file Sexual Orientation Not on file Last Filed Vital Signs Vital Sign Reading Time Taken Comments Blood Pressure 116/85 05/25/2024 1:25 PM EST Pulse 105 05/25/2024 1:25 PM EST Temperature 37.1 C (98.8 F) 05/25/2024 1:25 PM EST Respiratory Rate 16 05/25/2024 1:25 PM EST Oxygen Saturation 100% 05/25/2024 1:25 PM EST Inhaled Oxygen Concentration - - Weight 55.8 kg (123 lb) 05/25/2024 1:25 PM EST Height 165.1 cm (5' 5 ) 05/25/2024 1:25 PM EST Body Mass Index 20.47 05/25/2024 1:25 PM EST Plan of Treatment Health Maintenance Due Date Last Done Comments Hepatitis C Virus Screening 1997 HIV Screening 2010 DTaP/Tdap/Td Vaccines (1 - Tdap) 2016 Hepatitis B Vaccines (1 of 3 - 19+ 3-dose series) 2016 Pap Smear (Ages 21-65) 2018 Influenza Vaccine 10/30/2024 COVID-19 Vaccine (1 - 2023-2 5 season) 2024 HPV Vaccines (No Doses Required) Completed Pneumococcal Vaccine: Pediat jenna (0-5 Years) and At-Risk Patients (6 to 49 Years) Aged Out No longer eligible b ased on patient's age to complete this topic Insurance AETNA HMO/POS Care Teams Automobile And Property Underwriter Relationship Specialty Start Date End Date Lauryn Muir DO PCP - General Internal Medicine 05/25/24
--- OUTSIDE RECORDS SUMMARY | 2025-01-27 16:37 | XMS_ITS | Clinical Summary ---
Author Organization [facility] Address [address] [place] [address] Phone Care Team Providers Care Crown And Bridge Technician Name Role Phone Pcp, Unknown Primary Care Provider Unavailabl e Encounters Date Type Department Care Team Description 01/07/2025 Transcribe Orders [facility] [address], [address] [place], [place] [phone] Hanna Frank POTS (postural orthostatic tachycardia syndrome) (Primary Dx) from Last 3 Months Social History Tobacco Use Types Packs/Day Years Used Date Smoking Tobacco: Never Assessed Education Answer Date Recorded Are you interested in more education? Not on janette e 01/14/2025 Are you concerned about learning? Not on file 01/14/2025 No 01/14/2025 No 01/14/2025 Digital Access Answer Date Recorded No 01/14/2025 No 01/14/2025 Reliable internet access at home? Not on file 01/14/2025 Device with a working camera? Not on file Comments Unknown Sex and Gender Information Value Date Recorded Sex Assigned at Not on file Legal Sex Female 11:13 AM EDT Gender Identity Not on file Sexual Orientation Not on file Plan of Treatment Upcoming Encounters Date Type Department Care Team (Late st Contact Info) Description 02/09/2025 9:00 AM EST Office Visit [facility] [address], [address] [place], [place] [phone] Abebe Tavares DO [address] [facility] [address] [place], [place] [phone] [email or web address] Health Maintenance Due Date Last Done Comments Adult Td,Tdap Booster 1997 DEPRESSION SCREENING 2009 SMOKING Hx and SMOKELESS TOB ACCO SCREENING 2010 HEPATITIS C SCREENING 10/04/2015 HIV ONE-TIME SCREENING (18-6 5 YEARS) 10/04/2015 PAP SMEAR 2018 INFLUENZA VACCINE (#1) 2024 COVID-19 VACCINE ( - 2024-2 6 season) 2024 HEPATITIS A VACCINES Aged Out No long er eligible based on patient's age to complete this topic HIB VACCINES Aged Out No longer eligi ble based on patient's age to complete this topic MENINGOCOCCAL VACCINES (ACWY) Aged Out No longer eligible based on patient's age to complete this topic MENINGOCOCCAL VACCINES (B) Aged Out N o longer eligible based on patient's age to complete this topic PNEUMOCOCCAL VACCINES (0-49 years) Aged Out No longer eligible based on patient's age to complete this topic Medical Devices Not on file Insurance AETNA O POS EPO AETNA O POS EPO AETNA O POS EPO AETNA O POS EPO AETNA O POS EPO AETNA O POS EPO Care Teams Crown And Bridge Technician Relationship Specialty Start Date End Date Pcp, Unknown PCP - General 01/07/25 Additional Source Comments The information contained in this document represents components of the legal health record. It is not the complete legal health record.[facility]
== END 2025-01-27 15:25 | disposition home or self-care (01) ==
PROVIDERS: Emergency Provider Emergency Medicine
DX: R06.02 Shortness of breath (principal); T78.19XA Other adverse food reactions, not elsewhere classified, initial encounter; X58.XXXA Exposure to other specified factors, initial encounter; Y92.9 Unspecified place or not applicable
CPT/HCPCS: 96361; 96374; 99284; J1200; J7120